=== PATIENT | female | born 1960 | race Caucasian/White ===

== ENCOUNTER 2018-07-13 00:33 | Outpatient (CLI) | payer BC, SELFPAY ==
--- NOTE | 2018-07-13 09:20 | DI.RAD_ITS ---
SYMPTOM/DIAGNOSIS: RT FOOT PAIN, PERONEAL TENDINITIS RT LEG M76.71, M79.671 RIGHT FOOT: 07/13/18 Three views were obtained. There was deformity of the proximal phalanx of the 5th toe which probably represents an old healed fracture or healing fracture. There is an accessory ossicle adjacent to the calcaneal cuboid joint. Minimal degenerative changes of the hind foot and mid foot joints noted.
== END 2018-07-13 00:53 ==
PROVIDERS: PCP Internal Medicine; Visit Provider Physician Assistant Medical
DX: M76.71 Peroneal tendinitis, right leg (principal); M79.671 Pain in right foot; M19.071 Primary osteoarthritis, right ankle and foot
CPT/HCPCS: 73630

== ENCOUNTER 2019-06-21 09:30 | Outpatient (CLI) | payer BC, SELFPAY ==
--- NOTE | 2019-06-21 08:47 | DI.RAD_ITS ---
EXAM: XR KNEE RT 1V INDICATION: OSTEOARTHRITIS. COMPARISON: RIGHT KNEE LIMITED 1 OR 2 VIEW from 12/09/2016 TECHNIQUE: 2D digital imaging was performed. FINDINGS: A lateral projection of the right knee is provided. When compared to a prior examination of 9, again noted are the degenerative changes involving the tibiofemoral joint previously identified to involve primarily the medial tibiofemoral joint compartment in this patient who is status post ACL r epair.
--- NOTE | 2019-06-21 08:47 | DI.RAD_ITS ---
EXAM: XR STANDING ALIGNMENT INDICATION: OSTEOARTHRITIS RIGHT KNEE. COMPARISON: No exams were available for comparison TECHNIQUE: 2D digital imaging was performed. FINDINGS: The left leg measures 92 cm. The right leg measures 93 cm.
== END 2019-06-21 09:50 ==
PROVIDERS: PCP Internal Medicine; Visit Provider Student in an Organized Health Care Education/Training Program
DX: M25.561 Pain in right knee (principal); M17.11 Unilateral primary osteoarthritis, right knee; Z98.890 Other specified postprocedural states; M21.70 Unequal limb length (acquired), unspecified site
CPT/HCPCS: 73560; 77073

== ENCOUNTER 2019-08-14 09:09 | Outpatient (REF) | payer BC, SELFPAY ==
[2019-08-14 19:27] LABS: ALT 24 U/L (14-59); AST 17 U/L (15-37); Albumin 4.1 g/dL (3.4-5.0); Alkaline Phosphatase 70 U/L (46-116); Anion Gap 7.8 mmol/L (3-11); BUN 19 mg/dL (7-18); Bilirubin, Total 0.4 mg/dL (0.2-1.0); CO2 28.2 mmol/L (21.0-32.0); CREATININE 0.83 mg/dL (0.55-1.02); Calcium 9.5 mg/dL (8.5-10.1); Chloride 106 mmol/L (98-107); Glucose 100 mg/dL (74-106); Potassium 4.8 mmol/L (3.5-5.1); Sodium 142 mmol/L (136-145); Total Protein 7.2 g/dL (6.4-8.2)
== END 2019-08-14 09:29 ==
LOC: NCHCN 09:09
PROVIDERS: PCP Internal Medicine; Visit Provider Physician Assistant
DX: E78.5 Hyperlipidemia, unspecified (principal); F10.99 Alcohol use, unspecified with unspecified alcohol-induced disorder; R03.0 Elevated blood-pressure reading, without diagnosis of hypertension
CPT/HCPCS: 80053

== ENCOUNTER 2020-02-19 11:25 | Outpatient (REF) | payer BC, SELFPAY ==
[2020-02-20 12:29] LABS: COVID-19 RT-PCR UVMMC Result Negative (Negative)
== END 2020-02-19 11:45 ==
LOC: NCHCN 11:25
PROVIDERS: PCP Internal Medicine; Visit Provider Nurse Practitioner Family
DX: Z20.828 Contact with and (suspected) exposure to other viral communicable diseases (principal)
CPT/HCPCS: U0003

== ENCOUNTER 2020-05-13 17:20 | Outpatient (REF) | payer BC, SELFPAY ==
[2020-05-13 19:28] LABS: HGB 13.8 g/dL (11.2-15.7); MCH 30.7 pg (27.0-33.0); MCHC 33.7 % (32.0-36.0); MCV 91.1 fL (80-95); MPV 11.2 fL (8.0-11.0); Platelet Count 242 10^3/uL (130-400); RDW-SD 40.2 fL; WBC 11.98 10^3/uL (4.4-10.8)
[2020-05-13 19:40] LABS: ALT 23 U/L (14-59); AST 13 U/L (15-37); Albumin 3.8 g/dL (3.4-5.0); Alkaline Phosphatase 86 U/L (46-116); Amylase 28 U/L (25-115); Anion Gap 8.7 mmol/L (3-11); BUN 11 mg/dL (7-18); Bilirubin, Total 0.7 mg/dL (0.2-1.0); CO2 27.3 mmol/L (21.0-32.0); CREATININE 0.95 mg/dL (0.55-1.02); Calcium 9.2 mg/dL (8.5-10.1); Chloride 99 mmol/L (98-107); Glucose 124 mg/dL (74-106); Lipase 44 U/L (73-393); Potassium 3.9 mmol/L (3.5-5.1); Sodium 135 mmol/L (136-145)
== END 2020-05-13 17:40 ==
LOC: NCHCN 17:20
PROVIDERS: PCP Internal Medicine; Visit Provider Physician Assistant
DX: R10.32 Left lower quadrant pain (principal)
CPT/HCPCS: 80053; 83690; 85027; 82150

== ENCOUNTER 2020-07-29 21:40 | Outpatient (REF) | payer BC, SELFPAY ==
[2020-08-01 09:37] LABS: COVID-19 RT-PCR Result NEGATIVE (Negative)
== END 2020-07-29 22:00 ==
LOC: NCHCN 21:40
PROVIDERS: PCP Internal Medicine; Visit Provider Internal Medicine
DX: Z11.59 Encounter for screening for other viral diseases (principal)
CPT/HCPCS: U0003

== ENCOUNTER 2021-06-16 09:16 | Outpatient (CLI) | payer BC, SELFPAY ==
--- NOTE | 2021-06-16 09:00 | DI.RAD_ITS ---
Exam(s) XR STANDING ALIGNMENT XR KNEE RT 1V EXAM: XR STANDING ALIGNMENT and XR knee RT 1 V CLINICAL HISTORY: right knee DJD. TECHNIQUE: 2D digital imaging was performed. COMPARISON: CR XR STANDING ALIGNMENT from 06/21/2019 FINDINGS: The hips are well maintained. There is again seen tricompartment degenerative change in the right kn ee. The findings are most marked in the medial joint compartment where there is joint space narrowin g and periarticular spurring. Findings of a prior ACL repair are noted in the right knee. There is a small right knee joint effusion. There are mild degenerative changes in the left knee with periart icular spurring laterally. The ankles are well maintained. The left lower extremity measures 90.1 c m. The right lower extremity measures 90 cm. SOFT TISSUE: Normal. IMPRESSION: Degenerative changes in the knees, right greater than left. DATA REPOSITORY: RADIATION DOSE DELIVERED:
== END 2021-06-16 09:17 | disposition home or self-care (01) ==
LOC: DIORS 09:17
PROVIDERS: PCP Internal Medicine; Referring Provider Internal Medicine; Visit Provider Physician Assistant
DX: M25.561 Pain in right knee (principal); M25.461 Effusion, right knee; M17.31 Unilateral post-traumatic osteoarthritis, right knee; M17.12 Unilateral primary osteoarthritis, left knee
CPT/HCPCS: 73560; 77073

== ENCOUNTER 2022-01-13 11:58 | Outpatient (REF) | payer OTHER, SELFPAY ==
[2022-01-13 20:04] LABS: Hemoglobin A1C 5.5 % (<5.7)
[2022-01-13 20:08] LABS: ALT 30 U/L (14-59); AST 17 U/L (15-37); Alkaline Phosphatase 76 U/L (46-116); Anion Gap 12.8 mmol/L (3-11); BUN 22 mg/dL (7-18); Bilirubin, Total 0.5 mg/dL (0.2-1.0); CO2 24.2 mmol/L (21.0-32.0); CREATININE 0.8 mg/dL (0.55-1.02); Calcium 9.2 mg/dL (8.5-10.1); Chloride 105 mmol/L (98-107); Glucose 101 mg/dL (74-106); LDL CHOLESTEROL 186 mg/dL (<100); Potassium 4.4 mmol/L (3.5-5.1); Sodium 142 mmol/L (136-145)
== END 2022-01-13 11:59 | disposition home or self-care (01) ==
LOC: NCHCN 11:58
PROVIDERS: PCP Internal Medicine; Visit Provider Physician Assistant
DX: I10 Essential (primary) hypertension (principal); E78.5 Hyperlipidemia, unspecified; Z13.1 Encounter for screening for diabetes mellitus
CPT/HCPCS: 80053; 83721; 83036

== ENCOUNTER 2022-02-17 14:40 | Outpatient (REF) | payer OTHER, SELFPAY ==
--- NOTE | 2022-02-17 14:00 | PAPFT_PTH ---
PATIENT: Suzanne Resendiz LOC: [facility]#:[id number] AGE/SX: 61/F ROOM: RE02/17/[address]: Ann Villegas NP : 1960 BED: DIS: 02/17/2022 SPEC #: [id number] RECD: 02/17/22 18:15 STATUS: AZUL REQ #: [id number] MADIE: 02/17/22 14:[address]: Bakari TABOR,Ann DEPT: [facility] Cytology RECD BY: Es Olivo ENTERED: 02/17/22 18:16 SP TYPE: PAPFT OTHR DR: Shad Topete Tissues: 1 - CX/ENDOCX FOR PAP SMEARS Procedures: PAP THIN PREP/UVM Screening HPV DNA PROBE Comments: [id number]
== END 2022-02-17 14:41 | disposition home or self-care (01) ==
LOC: LBN 14:40
PROVIDERS: PCP Internal Medicine; Visit Provider Nurse Practitioner Women's Health
DX: Z12.4 Encounter for screening for malignant neoplasm of cervix (principal); Z11.51 Encounter for screening for human papillomavirus (HPV)
CPT/HCPCS: 88142; 87624

== ENCOUNTER 2023-06-15 17:12 | Outpatient (REF) | payer OTHER, SELFPAY ==
[2023-06-15 19:50] LABS: HCT 40.8 % (36.0-46.0); HGB 13.8 g/dL (11.2-15.7); MCH 31.2 pg (27.0-33.0); MCHC 33.8 % (32.0-36.0); MCV 92 fL (80-95); MPV 11.4 fL (8.0-11.0); Platelet Count 257 10^3/uL (130-400); RBC 4.42 10^6/uL (3.93-5.22); RDW 12.1 % (11.7-14.6); RDW-SD 41.4 fL; WBC 4.69 10^3/uL (4.4-10.8)
[2023-06-15 20:06] LABS: ALT 28 U/L (14-59); AST 15 U/L (15-37); Albumin 3.9 g/dL (3.4-5.0); Alkaline Phosphatase 79 U/L (46-116); Anion Gap 6.9 mmol/L (3-11); BUN 18 mg/dL (7-18); Bilirubin, Total 0.4 mg/dL (0.2-1.0); CO2 28.1 mmol/L (21.0-32.0); CREATININE 0.9 mg/dL (0.55-1.02); Calcium 9.7 mg/dL (8.5-10.1); Chloride 104 mmol/L (98-107); Estimated GFR 71.83 (mL/min/1.73m2); Glucose 135 mg/dL (74-106); Potassium 3.9 mmol/L (3.5-5.1); Sodium 139 mmol/L (136-145); Total Protein 7.5 g/dL (6.4-8.2)
== END 2023-06-15 17:13 | disposition home or self-care (01) ==
LOC: NCHCN 17:12
PROVIDERS: PCP Internal Medicine; Visit Provider Physician Assistant
DX: I10 Essential (primary) hypertension (principal)
CPT/HCPCS: 80053; 85027

== ENCOUNTER 2024-11-09 12:27 | Outpatient (REF) | payer OTHER, SELFPAY ==
[2024-11-09 19:20] LABS: ALT 30 U/L (14-59); AST 18 U/L (15-37); Alkaline Phosphatase 67 U/L (46-116); Anion Gap 5.6 mmol/L (3-11); BUN 19 mg/dL (7-18); Bilirubin, Total 0.4 mg/dL (0.2-1.0); CO2 29.4 mmol/L (21.0-32.0); Calcium 9.9 mg/dL (8.5-10.1); Calculated LDL 187 mg/dL (<100); Chloride 104 mmol/L (98-107); Cholesterol 283 mg/dL (<200); Estimated GFR 62.91 (mL/min/1.73m2); Glucose 89 mg/dL (74-106); HDL Cholesterol 80 mg/dL (>or=50); Potassium 4.6 mmol/L (3.5-5.1); Sodium 139 mmol/L (136-145); Total Protein 7.4 g/dL (6.4-8.2); Triglyceride 81 mg/dL (<150)
== END 2024-11-09 12:28 | disposition home or self-care (01) ==
LOC: NCHCN 12:27
PROVIDERS: PCP Physician Assistant; Visit Provider Physician Assistant
DX: E78.5 Hyperlipidemia, unspecified (principal)
CPT/HCPCS: 80053; 80061

== ENCOUNTER 2025-02-26 09:55 | Day surgery (SDC) | payer OTHER, SELFPAY ==
--- NOTE | 2025-02-25 22:20 | W.PM.DSUDISC ---
Date of service: 02/26/25 Discharge Plan Disposition Patient Disposition: Home Condition: Good Discharge Details Reason For Visit: screening colonoscopy Attending Provider: Pedrito Berman Primary Care Provider: Uyen Salgado Home Meds and New Rx's Prescriptions: Continued Ozempic 2 mg/dose (8 mg/3 mL) pen injector 2 mg subcut QWEEK Discontinued bisacodyl [Dulcolax (bisacodyl)] 5 mg tablet,delayed release (DR/EC) 5 mg PO ONCE Qty: 4 0RF Rx Instructions: Take per colonoscopy instructions provided by ordering providers office polyethylene glycol 3350 17 gram/dose powder 17 g PO ONCE Qty: 238 0RF Rx Instructions: Take per colonoscopy instructions provided by ordering providers office Discharge Instructions Instructions: Colon polyps, Diverticulosis Additional Instructions: Suzanne, is very nice seeing you today, and I hope you made a quick recovery after the procedure. Things went very smoothly. Your prep was excellent, and I could see everything fine. I did find, and removed 2 polyps today. These will both be sent off for testing. Polyps, different varieties, and once we get the results of the polyp analysis, we will be better informed to offer recommendations for future colonoscopies. Incidentally, you have some diverticulosis as well. I will attach some basic information here about colorectal polyps, as well as diverticulosis. If you need anything or have any questions at all, please do not hesitate to ask. 1. If tolerated, consume a soft, low fiber diet for 1-2 days. 2. Do not drive, drink alcohol, operate machinery, make critical decisions, or do activities that require coordination or balance for 24 hours. 3. Because air was put into your colon during the procedure, expelling air from your rectum (passing gas or farting) is normal. 4. You may not have a bowel movement for 1-3 days because of the colonoscopy prep. This is normal. 5. Go directly to the emergency room if you notice any of the following: Develop chills (warm to touch), or if you have a thermometer and your temperature is above 101 Difficulty breathing or difficultly swallowing Persistent vomiting Severe abdominal pain, other than gas cramps Severe chest pain Black, tarry stools Any bleeding ? exceeding one tablespoon 6. Call your physician if the site where your intravenous was started becomes red, swollen, painful, and warm to touch. 7. Your physician has reviewed your pre-procedure medications. Please continue to take those medications as previously ordered. You will be given specific information/education regarding any changes to your medications before leaving. Activity:: Activity as Tolerated Diet:: As Tolerated Discharge Orders Discharge Orders: Discharge Order (Routine); Ordered 02/25/25 Ordered By: Pedrito Berman DS: Diagnosis Discharge Diagnosis (1) Screening for colorectal cancer: Status: Acute Asessment and Plan: Follow-up on polypectomy results
--- NOTE | 2025-02-25 22:21 | W.COLOREPORT ---
Date of service: 02/26/25 Time of Service: 11:33 Colonoscopy Report Date of procedure: 02/26/25 Pre-op diagnosis general: screening colonoscopy Post-op diagnosis procedure note: other (Diverticulosis, colon polyps) Procedure: colonoscopy with polypectomy Surgeon: Pedrito Berman Anesthesia Type: General:No Airway Estimated blood loss (mL): 5 Pathology: other (0.25 cm flat polyp at 100 cm, 0.25 cm flat polyp at 30 cm) Complications: None Disposition: same day Indications: Suzanne is a 64 year old woman who needs a screening colonoscopy Prep: Miralax/Dulcolax Procedure Start Time: : Procedure End Time: : Retraction Time: 14 Findings: Sigmoid diverticulosis, 0.25 cm flat polyp at 100 cm, 0.25 cm flat polyp at 30 cm Procedure Description: After the induction of monitored anesthetic care, and with the patient in left lateral decubitus position, I began by performing an external anorectal exam.? There is scarring from previous surgery.? Next, I performed a digital rectal exam.? I did not appreciate any abnormal findings.? Next, I advanced a colonoscope into the rectal vault.? I performed retroflexion. This appeared normal.? Using irrigation, I then advanced the colonoscope beyond the rectal folds and into the sigmoid colon before advancing towards the cecum.? The quality of the prep was excellent.? The scope was noted to be in the cecum by identification of the ileocecal valve and appendiceal orifice.? I then began withdrawing the colonoscope using repeated irrigation as necessary for full evaluation of the colonic mucosa. ?Around 100 cm from the anal verge was a 0.25 cm flat polyp. This was removed in piecemeal with cold forceps. There was minimal bleeding, and resection was complete. There is evidence of sigmoid diverticulosis. Around 30 cm from the anal verge was another polyp. This was also about 0.25 cm and flat. I removed this with cold forceps as well. Once the scope was withdrawn to the level of the rectum, great care was taken to examine portions of the rectal folds.? Finally, the scope was withdrawn and the patient was brought to the same-day surgery recovery unit as the anesthetic wore off. ?The findings and instructions were shared with the patient prior to discharge. [place] Bowel Prep [place] Bowel Prep Right Colon: 3 Left Colon: 3 Transverse Colon: 3 Total Score: 9
[2025-02-26 10:05] VITALS: BP 173/78; PULSE 66; RESP 16; TEMP 36.5; O2SAT 99
--- NOTE | 2025-02-26 10:30 | W.ANESPRE ---
General Info Date of Service Date Performed: 02/26/25 Height: 5 ft 8 in Weight: 81.4 kg Body Mass Index (BMI): 27.3 Surgical Procedure: Operation Date: 02/26/25 09:50 Proposed Procedure Side Surgeon aren Berman MD Meds Allergies and Home Medications Allergies Allergy/AdvReac Type Severity Reaction Status Date / Time No Known Allergies Allergy Verified 02/26/25 10:21 Home Medication ?Medication ?Instructions ?Recorded semaglutide 2 mg/dose (8 mg/3 mL) 2 mg subcut QWEEK 02/07/25 subcutaneous pen injector (Ozempic) Current Visit Medications: Current Medications Generic Name Dose Route Start Last Admin Trade Name Freq PRN Reason Stop Dose Admin Ringer's Solution 1,000 mls @ 80 mls/hr 02/26/25 06:00 IV 03/27/25 23:59 INFUSION BOGDAN IV Miscellaneous Supplies 1 each 02/26/25 06:00 Iv Access IV 03/27/25 23:59 DIRECTED BOGDAN Ondansetron HCl 4 mg 02/25/25 22:22 Ondansetron 4 Mg/2 Ml Vial IVP 03/27/25 22:21 Q4H PRN PRN Nausea / Vomiting Sodium Chloride 0 ml 02/26/25 06:00 Normal Saline Flush 10 Ml Syr IV 03/27/25 23:59 PRN PRN Sodium Chloride 0 ml 02/26/25 06:00 Normal Saline 10 Ml Vial IJ 03/27/25 23:59 DIRECTED PRN Sterile Water 0 ml 02/26/25 06:00 Water,Injection,Sterile 10 Ml Vial IJ 03/27/25 23:59 DIRECTED PRN PFSH Active Problems Active Problems: Problem Status Onset Code Screening for colorectal cancer Acute Z12.11, Z12.12 Insomnia Acute G47.00 Hyperlipidemia Acute E78.5 Hypertension Chronic I10 Alcoholism Acute F10.20 Obesity Chronic E66.9 Left lower quadrant abdominal pain Acute R10.32 Stress Acute F43.9 Plantar fasciitis of left foot Acute M72.2 Screening for colon cancer Acute Z12.11 IUD (intrauterine device) in place Acute Z97.5 Post-traumatic osteoarthritis of right knee Chronic M17.31 Medical History Medical History Shingles Family history of alcoholism Encounter for routine checking of intrauterine contraceptive device (IUD) (09/27/13) Anal fistula Depression Anal skin tag Surgical History Surgical History S/P right knee arthroscopy S/P ACL reconstruction anal fistulectomy Tobacco Smoking/Tobacco Use Status: Former Tobacco Use Alcohol Alcohol Intake: current Alcohol intake frequency: 3 or more drinks per day Alcohol type: beer Substance Use Substance use: Never Prental History History 1 Para 0 Hx # Term Pregnancies Multiple births Hx # Pregnancies Ectopic pregnancies AB induced Hx Number of Living Children AB spontaneous 1 Vital Signs and Lab Results Vital Signs Most Recent Vital Signs in EMR: Most Recent Vital Signs Temp Pulse Resp BP Pulse Ox 36.5 C 66 16 173/78 H 99 02/26/25 10:05 02/26/25 10:05 02/26/25 10:05 02/26/25 10:05 02/26/25 10:05 Anesthesia Assessment and Plan Anesthesia History Personal History: No History of Anesthesia Complications Family History: No Family History of Anesthesia Complications Exercise Tolerance Exercise Tolerance: Metabolic Equivalents>4 Pertinent Negatives Pertinent Negatives: No Symptoms of GERD Cardiac & Pulmonary Exam Cardiac Exam: Normal S1/S2 Heart Sounds Pulmonary Exam: Clear Bilateral Breath Sounds Implantable Cardiac Device Does patient have a Pacemaker or an ICD?: No Airway Exam Known Difficult Airway: No Mallampati Class: 2 Mouth Opening: Normal (> 3cm) Thyromental Distance: Greater than 3 cm Neck Range of Motion: Full ROM Neck Circumference: Normal Teeth Condition: Normal Dentition ASA Classification ASA Score: ASA 2 Emergency Case?: No NPO Status NPO Status: NPO Clears >2 hours, Solids >8 hours Anesthesia Plan Resuscitation Status: Full Code Anesthesia Technique: General Anesthesia Airway Planned: Natural Airway Monitors Used: Standard Monitors
[2025-02-26 10:33] VITALS: BMI 27.3
[2025-02-26] MEDS: Lactated Ringers 1,000 ML 80 ML IV (10:45)
--- NOTE | 2025-02-26 11:14 | BOWEL_PTH ---
PATIENT: Suzanne Resendiz LOC: [facility] U#:[id number] AGE/SX: 64/F ROOM: RE02/26/[address]: Pedrito Berman MD : 1960 BED: DIS: 02/26/2025 SPEC #: [id number] RECD: 02/26/25 12:57 STATUS: AZUL REQ #: [id number] MADEI: 02/26/25 11:[address]: Pedrito Berman DEPT: Surgical Specimen RECD BY: Es Olivo ENTERED: 02/26/25 12:58 SP TYPE: Bowel OTHR DR: Uyen Salgado Tissues: 1 - BIOPSY BOWEL 2 - BIOPSY BOWEL Procedures: GROSS AND MICRO LEVEL 4 Comments: [id number]
[2025-02-26 11:25] VITALS: BP 144/74; PULSE 70; RESP 16; TEMP 36.4; O2SAT 98
[2025-02-26 12:00] VITALS: BP 163/72; PULSE 62; RESP 16; TEMP 36.2; O2SAT 97
--- NOTE | 2025-02-26 12:08 | W.ANESPOSTOP ---
Postoperative Evaluation Date, Time and Location Date Performed: 02/26/25 Time Performed: 12:08 Patient Location: Day Surgery Unit Vital Signs Most Recent Imported Vital Signs: Most Recent Vital Signs Temp Pulse Resp BP Pulse Ox 36.4 C L 70 16 144/74 H 98 02/26/25 11:25 02/26/25 11:25 02/26/25 11:25 02/26/25 11:25 02/26/25 11:25 Pain Score Most Recent Pain Score: Most Recent Pain Score Pain Level 0 02/26/25 11:25 Assessment Mental Status: Awake (Alert & Oriented to Patient Baseline) Airway and Respiratory Function: Patent airway with normal (patient baseline) respiratory exam Cardiovascular Function: Hemodynamically Stable Hydration Status: Adequately Hydrated Nausea & Vomiting: No Nausea or Vomiting Pain: Pt. Denies Any Pain Peripheral Nerve Block: Patient did not receive a nerve block
== END 2025-02-26 12:25 | disposition home or self-care (01) ==
LOC: SUR 09:55
PROVIDERS: PCP Physician Assistant; Visit Provider Surgery
PROC: 0DJD8ZZ Inspection of Lower Intestinal Tract, Via Natural or Artificial Opening Endoscopic (ICD-10-PCS; CPT 45378; principal; 2025-02-26 09:45)
DX: Z12.11 Encounter for screening for malignant neoplasm of colon (principal); Z12.12 Encounter for screening for malignant neoplasm of rectum; K57.30 Diverticulosis of large intestine without perforation or abscess without bleeding; D12.3 Benign neoplasm of transverse colon
CPT/HCPCS: 45380; 88305; J2704